=== PATIENT | male | born 1990 | race Caucasian/White ===

== ENCOUNTER 2020-10-10 00:58 | Emergency (ER) | payer OTHER ==
--- NOTE | 2020-10-10 01:12 | EDM.PDOC ---
ED HPI GENERAL MEDICAL PROBLEM - General Chief Complaint: Head Injury Stated Complaint: HEAD INJURY Time Seen by Provider: 10/10/20 01:06 - History of Present Illness INITIAL COMMENTS - FREE TEXT/NARRATIVE: 30-year-old male brought in by EMS highly intoxicated. The patient was at a friend's constitution party, and they traveled around in a constitution party bus. The patient became sleepy and his significant other requested the bus take him home. The patient was walking to his house from the bus and fell hitting his head on a wooden step. He is uncertain of his last tetanus shot. He had no loss of consciousness he was quite dazed however no nausea or vomiting. The patient had quite a bit of bleeding from his forehead and EMS was called. - Related Data Allergies Allergy/AdvReac Type Severity Reaction Status Date / Time No Known Allergies Allergy Verified 10/10/20 01:04 Home Meds: Home Meds . [No Known Home Meds] 10/10/20 [History] Social & Family History - Tobacco Use Tobacco Use Status *Q: Never Tobacco User - Recreational Drug Use Recreational Drug Use: No ED ROS GENERAL - Review of Systems Review Of Systems: See Below Constitutional: Reports: No Symptoms HEENT: Reports: No Symptoms Respiratory: Reports: No Symptoms Cardiovascular: Reports: No Symptoms Endocrine: Reports: No Symptoms GI/Abdominal: Reports: No Symptoms Musculoskeletal: Reports: No Symptoms Skin: Reports: No Symptoms Neurological: Reports: Headache (Mild) Psychiatric: Reports: No Symptoms ED EXAM, HEAD INJURY - Physical Exam Exam: See Below Exam Limited By: Intoxication General Appearance: Alert, No Apparent Distress, Other (The patient is cooperative) Head: Other (He has a large abrasion over his forehead that gets a little deep. And a superficial laceration above this lacerations approximately 3 cm in length does not require closure) Eyes: Bilateral Eye: EOMI, PERRL Neck: Non-Tender, Full Range of Motion, Normal Alignment, Normal Inspection. No: Paraspinous Muscle Tender, Spinous Processes Tender, Stiff Neck, Tenderness, Tender Lateral, Tender Midline Respiratory: No Respiratory Distress, Lungs Clear, Normal Breath Sounds, Chest Non-Tender Cardiovascular: Regular Rate, Rhythm, No Edema, No Murmur GI/Abdominal Exam: Normal Bowel Sounds, Soft, Non-Tender, Pelvis Stable Back Exam: Normal Inspection. No: CVA Tenderness (L), CVA Tenderness (R), Paraspinal Tenderness, Vertebral Tenderness Extremities: Normal Inspection, Normal Range of Motion, Non-Tender, No Pedal Edema, Normal Capillary Refill Course - Vital Signs Last Recorded V/S: Last Vital Signs Temp 37.1 C 10/10/20 01:02 Pulse 78 10/10/20 01:02 Resp 16 10/10/20 01:02 BP 130/98 H 10/10/20 01:02 Pulse Ox 98 10/10/20 01:02 - Orders/Labs/Meds Orders: Active Orders 24 hr Category Date Time Status Vaccines to be Administered [RC] PER UNIT ROUTINE Care 10/10/20 01:22 Active Head wo Cont [CT] Stat Exams 10/10/20 01:19 Taken Lactated Ringers [Ringers, Lactated] 1,000 ml Med 10/10/20 01:30 Active IV ASDIRECTED Medication Orders Lactated Ringer's (Ringers, Lactated) 1,000 mls @ 150 mls/hr IV ASDIRECTED DL Labs: Laboratory Tests 10/10/20 10/10/20 Range/Units 01:45 01:45 WBC 8.18 (4.23-9.07) K/mm3 RBC 4.86 (4.63-6.08) M/mm3 Hgb 15.3 (13.7-17.5) gm/dl Hct 44.4 (40.1-51.0) % MCV 91.4 (79.0-92.2) fl MCH 31.5 (25.7-32.2) pg MCHC 34.5 (32.2-35.5) g/dl RDW Std Deviation 42.3 (35.1-43.9) fL Plt Count 235 (163-337) K/mm3 MPV 9.1 L (9.4-12.3) fl Neut % (Auto) 59.8 (34.0-67.9) % Lymph % (Auto) 30.0 (21.8-53.1) % Douglas % (Auto) 8.6 (5.3-12.2) % Eos % (Auto) 1.2 (0.8-7.0) Baso % (Auto) 0.2 (0.1-1.2) % Neut # (Auto) 4.89 (1.78-5.38) K/mm3 Lymph # (Auto) 2.45 (1.32-3.57) K/mm3 Douglas # (Auto) 0.70 (0.30-0.82) K/mm3 Eos # (Auto) 0.10 (0.04-0.54) K/mm3 Baso # (Auto) 0.02 (0.01-0.08) K/mm3 Sodium 144 (136-145) mEq/L Potassium 3.5 (3.5-5.1) mEq/L Chloride 106 (98-107) mEq/L Carbon Dioxide 23 (21-32) mEq/L Anion Gap 18.5 H (5-15) BUN 8 (7-18) mg/dL Creatinine 0.8 (0.7-1.3) mg/dL Est Cr Clr Drug Dosing 117.45 mL/min Estimated GFR (MDRD) > 60 (>60) mL/min BUN/Creatinine Ratio 0.0 L (14-18) Glucose 115 H (70-99) mg/dL Calcium 8.7 (8.5-10.1) mg/dL Total Bilirubin 0.5 (0.2-1.0) mg/dL AST 22 (15-37) U/L ALT 30 (16-63) U/L Alkaline Phosphatase 51 (46-116) U/L Total Protein 7.9 (6.4-8.2) g/dl Albumin 4.3 (3.4-5.0) g/dl Globulin 3.6 gm/dL Albumin/Globulin Ratio 1.2 (1-2) Ethyl Alcohol 0.33 (0.00) gm% Meds: Medications Generic Name Dose Route Start Last Admin Trade Name Freq PRN Reason Stop Dose Admin Lactated Ringer's 1,000 mls @ 150 mls/hr 10/10/20 01:30 Ringers, Lactated IV ASDIRECTED DL Discontinued Medications Generic Name Dose Route Start Last Admin Trade Name Freq PRN Reason Stop Dose Admin Diphtheria/Tetanus/Acell Pertussis 0.5 ml 10/10/20 01:22 10/10/20 01:47 Diphtheria,Pertussis(Acell),Tetanus Vaccine 0.5 Ml Syringe IM 10/10/20 01:23 0.5 ml .ONCE ONE Administration Lactated Ringer's 1,000 mls @ 999 mls/hr 10/10/20 01:20 10/10/20 01:48 Ringers, Lactated IV 10/10/20 02:20 999 mls/hr .BOLUS ONE Administration Ondansetron HCl 4 mg 10/10/20 01:20 10/10/20 01:46 Ondansetron 4 Mg/2 Ml Sdv IVPUSH 10/10/20 01:21 4 mg ONETIME ONE Administration - Re-Assessments/Exams Free Text/Narrative Re-Assessment/Exam: 10/10/20 03:16 CT shows no acute changes. He has a large abrasion on the forehead nothing to be repaired he may have some scarring from this however he has a superficial laceration just above this that will not benefit from primary closure. 10/10/20 03:17 Is reviewed only remarkable for blood alcohol of 2.33 and an anion gap of 18. Patient has received some fluids and Zofran, and he generally feels a little better. We will continue with the fluids at this point. 10/10/20 03:50 She is ambulatory on his own at this time, and would like to go home. He has a sober driver guard. We will discharge at this time. Departure - Departure Time of Disposition: 03:51 Disposition: Home, Self-Care 01 Clinical Impression: Head injury, Abrasion of forehead, Alcohol intoxication - Discharge Information Referrals: PCP,None [Primary Care Provider] - Forms: ED Department Discharge Additional Instructions: Return to the emergency room with any questions problems or concerning symptoms. Keep the wound on your forehead clean and dry for the next 24 hours. After 24 hours you can let water gently run over the area and gently dab dry. Do not scrub do not soak. If you do not have a regular physician follow-up at the hospital clinic the end of this next week for recheck of your head injury. [phone] Drink lots of water and nonalcoholic beverages. Thank you for not driving tonight. Sepsis Event Note (ED) - Evaluation Sepsis Screening Result: No Definite Risk - Focused Exam Vital Signs: Vital Signs Temp Pulse Resp BP Pulse Ox 10/10/20 01:02 37.1 C 78 16 130/98 H 98 - My Orders Last 24 Hours: My Active Orders 10/10/20 01:19 Head wo Cont [CT] Stat 10/10/20 01:22 Vaccines to be Administered [RC] PER UNIT ROUTINE 10/10/20 01:30 Lactated Ringers [Ringers, Lactated] 1,000 ml IV ASDIRECTED - Assessment/Plan Last 24 Hours: My Active Orders 10/10/20 01:19 Head wo Cont [CT] Stat 10/10/20 01:22 Vaccines to be Administered [RC] PER UNIT ROUTINE 10/10/20 01:30 Lactated Ringers [Ringers, Lactated] 1,000 ml IV ASDIRECTED
[2020-10-10] MEDS ORDERED: Ondansetron 4 MG/2 ML SDV IVPUSH ONE (01:20)
[2020-10-10] MEDS ORDERED: Lactated Ringers 1,000 ML IV ONE (01:20)
[2020-10-10] MEDS ORDERED: Diphtheria,Pertussis(Acell),Tetanus Vaccine 0.5 ML Syringe IM ONE (01:22)
[2020-10-10] MEDS ORDERED: Lactated Ringers 1,000 ML IV SCH (01:30)
--- NOTE | 2020-10-10 08:35 | CT ---
Head CT Technique: Multiple axial sections through the brain were obtained. Intravenous contrast was not utilized. Reconstructed coronal and sagittal images were obtained. Comparison: No prior intracranial imaging is available. Findings: Ventricles along with basal cisterns and sulci over the convexities are within normal limits for the patient's age. No abnormal parenchymal densities are seen. No evidence of intracranial hemorrhage is seen. No midline shift or mass-effect is seen. Bone window settings were reviewed. No acute calvarial abnormality is appreciated. Visualized mastoid sinuses and visualized paranasal sinuses show nothing acute. Impression: 1. Nothing acute is seen on noncontrast head CT study. Diagnostic code #1 I agree with preliminary report from [facility] finalized on 10/10/20, 3:01 AM CDT, code 1
== END 2020-10-10 04:11 | disposition home or self-care (01) ==
LOC: JD.ED 00:58
DX: S00.81XA Abrasion of other part of head, initial encounter (principal); F10.129 Alcohol abuse with intoxication, unspecified; Y90.5 Blood alcohol level of 100-119 mg/100 ml; Z23 Encounter for immunization; W22.09XA Striking against other stationary object, initial encounter
CPT/HCPCS: 36415; 70450; 80053; 80307; 85025; 90471; 90715; 96374; 99284; J2405; J7120; 99283